=== PATIENT | male | born 2000 | race Caucasian/White ===

== ENCOUNTER 2023-05-31 23:33 | Emergency (ER) | payer OTHER ==
[2023-05-31 23:48] VITALS: BP 134/71
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
== END 2023-06-01 00:11 | disposition home or self-care (01) ==
LOC: ED 23:33
DX: T59.811A Toxic effect of smoke, accidental (unintentional), initial encounter (principal); Y92.89 Other specified places as the place of occurrence of the external cause
CPT/HCPCS: 99281; 99282

== ENCOUNTER 2024-03-04 16:28 | Emergency (ER) | payer OTHER ==
[2024-03-04 16:37] VITALS: BP 143/66; O2SAT 98
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
--- NOTE | 2024-03-04 17:16 | XRAY Report ---
PROCEDURE: Knee 4+V LT INDICATIONS: knee inj TECHNIQUE: 4 views of the knee(s) were acquired. COMPARISON: None. FINDINGS: Bones: No fractures or dislocations. No suspicious bony lesions. Soft tissues: No significant knee joint effusion. No suspicious soft tissue calcifications or masses . IMPRESSION: No acute bony abnormality as seen by plain film. If it would be helpful for clinical management decision making, please consider a dedicated, schedule d knee MRI for further evaluation (assuming that there is no contraindication). Reviewed by: Jose Juan Castro MD on 03/04/2024 4:15 PM LUCY Approved by: Jose Juan Castro MD on 03/04/2024 4:15 PM LUCY Station ID: [id number]
== END 2024-03-04 17:03 | disposition home or self-care (01) ==
LOC: ED 16:28
DX: S83.92XA Sprain of unspecified site of left knee, initial encounter (principal); V86.99XA Unspecified occupant of other special all-terrain or other off-road motor vehicle injured in nontraffic accident, initial encounter; Y93.89 Activity, other specified
CPT/HCPCS: 99283; 99284